=== PATIENT | male | born 1990 | race Asian ===

== ENCOUNTER 2017-04-15 19:56 | Emergency (ER) | payer OTHER ==
[~2017-04-15] VITALS: Ht 167.6 cm; Wt 84.0 kg
[2017-04-15 20:02] VITALS: Ht 167.6 cm; Wt 84.0 kg
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
[2017-04-15] MEDS ORDERED: IBUPROFEN 800 MG TAB PO STA (21:20)
[2017-04-15] MEDS ORDERED: OXYC1TAB3 PO (21:29)
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
[2017-04-15 21:51] VITALS: BP 118/88; PULSE 101; TEMP 36.5; O2SAT 97
== END 2017-04-15 21:53 | disposition home or self-care (01) ==
LOC: C.EDB 20:00 → C.EDD 21:53
DX: S52.135A Nondisplaced fracture of neck of left radius, initial encounter for closed fracture (principal); V19.9XXA Pedal cyclist (driver) (passenger) injured in unspecified traffic accident, initial encounter; Y93.55 Activity, bike riding